=== PATIENT | female | born 1975 ===

== ENCOUNTER → 2017-03-24 | Outpatient (CLI) | payer OTHER | END | disposition home or self-care (01) | LOC: TOM 07:40 → MAMO-SONO 08:15 | DX: R13.10 Dysphagia, unspecified (principal) ==

== ENCOUNTER → 2017-03-24 | Outpatient (CLI) | payer OTHER | END | disposition home or self-care (01) | LOC: SONOGRAMA 07:49 | DX: R10.9 Unspecified abdominal pain (principal) ==

== ENCOUNTER 2017-04-05 07:49 | Outpatient (CLI) | payer OTHER ==
[~2017-04-05] VITALS: Ht 157.5 cm; Wt 80.7 kg
[2017-04-05] MEDS ORDERED: CLARITIN10 MG PO (09:01)
[2017-04-05] MEDS ORDERED: CEFUROXIME500 MG PO (09:01)
== END 2017-04-05 08:10 | disposition home or self-care (01) ==
LOC: OFIC 805 07:49
DX: R22.1 Localized swelling, mass and lump, neck (principal); J34.2 Deviated nasal septum; J32.8 Other chronic sinusitis; J35.2 Hypertrophy of adenoids; R49.8 Other voice and resonance disorders

== ENCOUNTER 2017-05-03 07:10 | Outpatient (CLI) | payer OTHER ==
[~2017-05-03] VITALS: Ht 152.4 cm; Wt 80.7 kg
[~2017-05-03 07:10] MED LIST: CEFUROXIME500 MG PO; CLARITIN10 MG PO
== END 2017-05-03 07:25 | disposition home or self-care (01) ==
LOC: OFIC 805 07:10
DX: J34.2 Deviated nasal septum (principal); J32.8 Other chronic sinusitis; J35.2 Hypertrophy of adenoids; R49.8 Other voice and resonance disorders; E04.1 Nontoxic single thyroid nodule

== ENCOUNTER 2017-05-31 07:21 | Outpatient (CLI) | payer OTHER ==
[~2017-05-31] VITALS: Ht 152.4 cm; Wt 80.7 kg
== END 2017-05-31 07:50 | disposition home or self-care (01) ==
LOC: OFIC 805 07:21
DX: J04.0 Acute laryngitis (principal); E04.1 Nontoxic single thyroid nodule

== ENCOUNTER 2017-06-13 06:07 | Inpatient (IN) | payer OTHER ==
[~2017-06-13] VITALS: Ht 157.5 cm; Wt 83.5 kg
[2017-06-14] MEDS ORDERED: CYTOMEL25 MCG PO (08:25)
[2017-06-14] MEDS ORDERED: CALTRATE 600 +1 EACH PO (08:25)
== END 2017-06-14 13:06 | disposition home or self-care (01) | DRG 627 ==
LOC: CIR.AMB 06:07 → O/R 11:05 → SURG 11:26
PROVIDERS: Otolaryngology
PROC: 0GTK0ZZ Resection of Thyroid Gland, Open Approach (ICD-10-PCS; principal; 2017-06-13 11:00)
DX: C73 Malignant neoplasm of thyroid gland (principal)

== ENCOUNTER 2017-06-21 07:22 | Outpatient (CLI) | payer OTHER ==
[~2017-06-21] VITALS: Ht 152.4 cm; Wt 80.7 kg
[~2017-06-21 07:22] MED LIST changes: +CALTRATE 600 +1 EACH PO; +CYTOMEL25 MCG PO
== END 2017-06-21 07:45 | disposition home or self-care (01) ==
LOC: OFIC 805 07:22
DX: C73 Malignant neoplasm of thyroid gland (principal)

== ENCOUNTER 2017-07-27 12:58 | Outpatient (CLI) | payer OTHER | END 2017-07-27 13:22 | disposition home or self-care (01) | LOC: NUCLEAR 12:58 | DX: C73 Malignant neoplasm of thyroid gland (principal); E89.0 Postprocedural hypothyroidism | CPT/HCPCS: 79005; A9517 ==

== ENCOUNTER 2017-07-31 13:48 | Outpatient (CLI) | payer OTHER | END 2017-07-31 13:52 | disposition home or self-care (01) | LOC: NUCLEAR 13:48 | DX: C73 Malignant neoplasm of thyroid gland (principal); E89.0 Postprocedural hypothyroidism ==

== ENCOUNTER 2018-09-05 13:14 | Outpatient (CLI) | payer OTHER | END 2018-09-05 13:19 | disposition home or self-care (01) | LOC: NUCLEAR 13:14 | DX: C73 Malignant neoplasm of thyroid gland (principal) | CPT/HCPCS: A9528; 78018; 78020 ==